=== PATIENT | female | born 1950 | race Caucasian/White ===

== ENCOUNTER 2020-02-27 01:38 | Emergency (ER) | payer OTHER ==
[~2020-02-27] VITALS: Ht 170.2 cm; Wt 90.7 kg
--- NOTE | 2020-02-27 01:51 | NUR ---
PT AAOX4. BIBEMS C/O L SIDED CHEST PAIN RADIATING TO L ARM X1 HR REGULATORY AFFAIRS COORDINATOR. 3 NITRO SPRAY AND 325MG ASPIRIN GIVEN REGULATORY AFFAIRS COORDINATOR. PT PLACED ON JALOUSIES INSTALLER AND PULSE OX. DESPITE MEDICATIONS GIVEN, PT STILL C/O CP UPON ARRIVAL. PT PLACED IN GOWN, ON MONITOR AND PULSE OX. EMT AT BEDSIDE FOR EKG. AWAITING MD FOR EVRUI AND OTHERS.
--- NOTE | 2020-02-27 02:02 | NUR ---
PHOTOGRAPHIC SUPERVISOR AT BEDSIDE FOR BLOOD WORK.
[2020-02-27 02:11] LABS: BASOPHILS % (AUTO) 0.7 % (0.0-2.0); EOSINOPHILS % (AUTO) 1.6 % (0.0-6.0); HEMATOCRIT 40 % (33-45); HEMOGLOBIN 13.2 g/dL (11.5-14.8); LYMPHOCYTES # (AUTO) 2.3 /CMM (0.8-4.8); LYMPHOCYTES % (AUTO) 45.6 % (20.0-44.0); MEAN CORPUSCULAR HGB CONC 34 g/dl (31.0-36.0); MEAN CORPUSCULAR VOLUME 92 fL (82-100); MONOCYTES # (AUTO) 0.4 /CMM (0.1-1.30); MONOCYTES % (AUTO) 7.6 % (2.0-12.0); NEUTROPHILS # (AUTO) 2.2 /CMM (1.8-8.9); NEUTROPHILS % (AUTO) 44.5 % (43.0-81.0); PLATELET COUNT (AUTO) 146 /CMM (150-450); RED BLOOD CELL COUNT(AUTO) 4.28 MIL/uL (4.0-5.2)
[2020-02-27 02:20] LABS: CALCIUM, SERUM 8.6 mg/dL (8.5-10.1); CARBON DIOXIDE 29 mmol/L (21-32); CHLORIDE 103 mmol/L (98-107); CREATININE 1.1 mg/dL (0.6-1.3); GLUCOSE 232 mg/dL (74-106); POTASSIUM 3.7 mmol/L (3.5-5.1); SODIUM SERUM 140 mmol/L (136-145); UREA NITROGEN, BLOOD 19 mg/dL (7-18)
[2020-02-27 02:33] LABS: ALANINE AMINOTRANSFERASE 40 U/L (12-78); ALBUMIN 3.3 g/dL (3.4-5.0); ALKALINE PHOSPHATASE 98 U/L (46-116); ASPARTATE AMINOTRANSFERASE 21 U/L (15-37); B-TYPE NATRIURETIC PEPTIDE 123 PG/ML (0-125); BILIRUBIN,DIRECT 0.1 mg/dL (0.0-0.2); BILIRUBIN,TOTAL 0.4 mg/dL (0.2-1.0); TOTAL PROTEIN, SERUM 6.7 g/dL (6.4-8.2)
--- NOTE | 2020-02-27 02:37 | NUR ---
PATTIID SWABBED, SENT TO LAB.
--- NOTE | 2020-02-27 02:43 | NUR ---
[facility] PAGED.
--- NOTE | 2020-02-27 02:46 | NUR ---
AT BEDSIDE SPEAKING TO PT.
--- NOTE | 2020-02-27 03:03 | NUR ---
LAB CALLED REGARDING NEGATIVE COVID RESULT.
--- NOTE | 2020-02-27 03:09 | NUR ---
CALL FROM [place] [facility]. PT ACCEPTED BY DR PIÑA AT [facility]. # FOR REPORT [phone]. ETA [phone]
--- NOTE | 2020-02-27 03:22 | NUR ---
REPORT GIVEN TO FRANCO TAVARES FOR [facility]
[2020-02-27 03:30] VITALS: BP 144/76
--- NOTE | 2020-02-27 03:30 | NUR ---
REPORT GIVEN TO MARIA T CAMPBELL PT TRANSFERED TO [facility].
== END 2020-02-27 03:36 | disposition short-term general hospital (02) ==
LOC: ER 01:40
DX: R07.9 Chest pain, unspecified (principal); I25.2 Old myocardial infarction; Z95.5 Presence of coronary angioplasty implant and graft; E11.9 Type 2 diabetes mellitus without complications; Z88.1 Allergy status to other antibiotic agents; Z88.5 Allergy status to narcotic agent; I10 Essential (primary) hypertension; Z20.828 Contact with and (suspected) exposure to other viral communicable diseases
CPT/HCPCS: 36415; 71045; 80048; 80076; 83880; 84484; 85025; 87426; 93005; 99285; C9803

== ENCOUNTER 2020-04-21 12:39 | Emergency (ER) | payer OTHER ==
[~2020-04-21] VITALS: Ht 157.5 cm; Wt 102.5 kg
--- NOTE | 2020-04-21 12:47 | NUR ---
HERMAN FROM [facility]. TO ER BED 1. AAOX4. NOT IN RESP DISTRESS. AMBULATORY. CAME IN FOR L ARM PAIN S/P SLIP AND FALL. DENIES HEAD TRAUMA NOR LOC. PAIN IS 9/10 AGGREVATED BY MOVEMENT. AWAITING MD FOR EVAL.
--- NOTE | 2020-04-21 13:40 | NUR ---
xray by bedside
[2020-04-21] MEDS ORDERED: IBUPROFEN 600 MG TABLET PO ONE (14:00)
[2020-04-21] MEDS ORDERED: IBUPROFEN 600 MG TABLET ONE (14:12)
--- NOTE | 2020-04-21 14:47 | NUR ---
report given to sun at [facility].
--- NOTE | 2020-04-21 15:17 | NUR ---
pt waiting for her son to pick her up.
--- NOTE | 2020-04-21 15:31 | NUR ---
Patient discharged to home in stable condition. Written and verbal after care instructions given. Patient verbalizes understanding of instruction. pt will wait for son in waiting room to pick her up
[2020-04-21 15:32] VITALS: BP 137/82
== END 2020-04-21 15:32 | disposition home or self-care (01) ==
LOC: ER 12:49
DX: S42.292A Other displaced fracture of upper end of left humerus, initial encounter for closed fracture (principal); I10 Essential (primary) hypertension; I25.2 Old myocardial infarction; E11.9 Type 2 diabetes mellitus without complications; Z95.818 Presence of other cardiac implants and grafts; Z88.1 Allergy status to other antibiotic agents; Z88.6 Allergy status to analgesic agent; W01.0XXA Fall on same level from slipping, tripping and stumbling without subsequent striking against object, initial encounter; Y93.89 Activity, other specified; Y92.89 Other specified places as the place of occurrence of the external cause; Y99.8 Other external cause status
CPT/HCPCS: 73030-TC

== ENCOUNTER 2025-01-29 03:56 | Inpatient (IN) | payer OTHER ==
[~2025-01-29] VITALS: Ht 165.1 cm; Wt 113.4 kg
[2025-01-29 04:47] LABS: PLATELET COUNT (AUTO) 154 K/uL (150-450); RED BLOOD CELL COUNT(AUTO) 4.61 MIL/uL (4.0-5.2); RED CELL DISTRIBUTION WIDTH 13.3 % (11.5-15.0); WHITE BLOOD COUNT (AUTO) 7.9 K/uL (4.3-11.0)
[2025-01-29 04:53] LABS: CALCIUM, SERUM 9.0 mg/dL (8.5-10.1); CREATININE 1.5 mg/dL (0.6-1.3); SODIUM SERUM 144.0 mmol/L (136-145); UREA NITROGEN, BLOOD 22.0 mg/dL (7-18)
[2025-01-29 05:05] LABS: ASPARTATE AMINOTRANSFERASE 19.0 U/L (15-37); NT-PRO BNP 132.0 pg/mL (0-125); TOTAL PROTEIN, SERUM 7.0 g/dL (6.4-8.2)
[2025-01-29] MEDS ORDERED: CARV3.122 PO (08:57)
[2025-01-29] MEDS ORDERED: OMEP-99 PO (08:57)
[2025-01-29] MEDS ORDERED: GLIP5TAB13 PO (08:57)
[2025-01-29] MEDS ORDERED: INSU100I26 SQ (08:57)
[2025-01-29] MEDS ORDERED: LOSA1TAB36 PO (08:57)
[2025-01-29] MEDS ORDERED: ASPI-1169 PO (09:00)
[2025-01-29] MEDS ORDERED: DEXTROSE 50%-WATER 50 ML DISP.SYRIN IV PRN (09:00)
[2025-01-29] MEDS ORDERED: TEMAZEPAM 15 MG CAPSULE PO PRN (09:00)
[2025-01-29] MEDS ORDERED: Z GUARD REMEDY 4 OZ OINT TP PRN (09:00)
[2025-01-29] MEDS ORDERED: ONDANSETRON HCL/PF 4 MG/2 ML VIAL IVP PRN (09:00)
[2025-01-29] MEDS ORDERED: MAGNESIUM HYDROXIDE 30 ML UDC PO PRN (09:00)
[2025-01-29] MEDS ORDERED: MAG HYDROX/AL HYDROX/SIMETH 30 ML UDC PO PRN (09:00)
[2025-01-29] MEDS ORDERED: IOHEXOL-350 100 ML VIAL IV ONE (09:34)
[2025-01-29] MEDS ORDERED: IV NS 0.9% 250 ML IV ONE (09:34)
[2025-01-29] MEDS ORDERED: CT SWABBABLE VALVE TRANS SET 1 EA INFUS.SET MC ONE (09:34)
[2025-01-29] MEDS ORDERED: ASPIRIN 81 MG TAB.CHEW ONE (09:54)
[2025-01-29] MEDS: ASPIRIN 81 MG TAB.CHEW PO SCH (09:54)
[2025-01-29] MEDS: PANTOPRAZOLE 40 MG TABLET.DR PO SCH (09:56)
[2025-01-29] MEDS ORDERED: PANTOPRAZOLE 40 MG TABLET.DR PO ONE (09:56)
[2025-01-29] MEDS: INSULIN REGULAR, HUMAN 100 UNIT/ML 3 ML VIAL SQ PRN (13:20)
[2025-01-29] MEDS: BLOOD SUGAR DIAGNOSTIC 1 EACH STRIP IN SCH (13:24)
[2025-01-29] MEDS: IV NS 0.9% 1,000 ML IV PRN (14:12)
[2025-01-29 14:43] VITALS: BP_SYST 113; BP_SYST 116; BP_DIAS 69; BP_DIAS 74; TEMP 98.4; O2SAT 98
[2025-01-29] MEDS: ACETAMINOPHEN 325 MG TABLET PO PRN (19:42)
[2025-01-29 20:00] VITALS: BP_SYST 116; BP_SYST 134; BP_SYST 141; BP_DIAS 102; BP_DIAS 77; BP_DIAS 82; TEMP 98.1; O2SAT 97
[2025-01-30 04:00] VITALS: BP 147/68; TEMP 97.9; O2SAT 98
[2025-01-30 08:00] VITALS: BP 147/68; TEMP 97.9; O2SAT 96
[2025-01-30 08:02] LABS: CALCIUM, SERUM 8.8 mg/dL (8.5-10.1); CREATININE 1.3 mg/dL (0.6-1.3); PHOSPHORUS 3.7 mg/dL (2.5-4.9); SODIUM SERUM 146.0 mmol/L (136-145); UREA NITROGEN, BLOOD 18.0 mg/dL (7-18)
[2025-01-30 08:11] LABS: PLATELET COUNT (AUTO) 130 K/uL (150-450); RED BLOOD CELL COUNT(AUTO) 4.29 MIL/uL (4.0-5.2); RED CELL DISTRIBUTION WIDTH 13.5 % (11.5-15.0); WHITE BLOOD COUNT (AUTO) 4.5 K/uL (4.3-11.0)
[2025-01-30 08:13] LABS: LDL 130.0 mg/dL (0-99)
[2025-01-30 12:00] VITALS: BP 137/74; TEMP 98.1; O2SAT 99
[2025-01-30] MEDS ORDERED: CARVEDILOL 3.125 MG TABLET PO SCH (17:00)
[2025-01-30] MEDS ORDERED: INSULIN GLARGINE, 100 UNIT/ML CARTRIDGE SQ SCH (22:00)
[2025-01-31] MEDS ORDERED: ASPIRIN 81 MG TAB.CHEW PO SCH (09:00)
== END 2025-01-30 15:14 | disposition home or self-care (01) | DRG 640 ==
LOC: ER 04:00 → TELE1 12:30
PROVIDERS: ADMIT Nurse Practitioner Acute Care; ATTEND Nurse Practitioner Acute Care
DX: E86.0 Dehydration (principal); I21.A1 Myocardial infarction type 2; N17.0 Acute kidney failure with tubular necrosis; Z68.41 Body mass index [BMI] 40.0-44.9, adult; E11.9 Type 2 diabetes mellitus without complications; F17.200 Nicotine dependence, unspecified, uncomplicated; E78.5 Hyperlipidemia, unspecified; E87.0 Hyperosmolality and hypernatremia; I10 Essential (primary) hypertension; Z79.4 Long term (current) use of insulin; Z90.710 Acquired absence of both cervix and uterus; E83.89 Other disorders of mineral metabolism; E66.01 Morbid (severe) obesity due to excess calories
CPT/HCPCS: 36415; 70450-TC; 70496-TC; 70498-TC; 71045-TC; 76770-TC; 80048-TC; 80053-TC; 80061-TC; 82962-TC; 83735-TC; 83880; 84100-TC; 84443-TC; 84484-TC; 85025-TC; 93307-TC; 97116-TC; 97530-TC; A4223; G0378; J1815; J7030; J7050; Q9967